=== PATIENT | female | born 1960 ===

== ENCOUNTER 2017-05-07 07:57 | Day surgery (SDC) | payer OTHER ==
[~2017-05-07 07:57] MED LIST: Bupivacaine HCl 0.25% PF (10 ml) Inj ONE; Iohexol 240 (50 ml) ONE; Lidocaine Hydrochloride 0 ML INJ ONE
[2017-05-07] MEDS ORDERED: Lidocaine 1% MPF (30 ml) Inj ONE (09:43)
[2017-05-07] MEDS ORDERED: Lactated Ringer's 1,000 ML IV ONE (10:05)
[2017-05-07] MEDS ORDERED: Propofol 10 mg/ml Inj (20 ML) ONE (10:10)
[2017-05-07] MEDS ORDERED: Midazolam 2 MG/2 ML VIAL ONE ×2 (10:10→10:22)
[2017-05-07 11:04] VITALS: RESP 18; TEMP 97; O2SAT 100
[2017-05-07 11:30] VITALS: BP 118/72; PULSE 70
--- NOTE | 2017-05-12 14:48 | RAD ---
PROCEDURE: Intraoperative Fluoroscopy. HISTORY: CERVICAL SPONDYLOSIS FINDINGS: Fluoroscopic assistance was provided for radiofrequency ablation. Please refer to the operative report from Dr. PEDROZA. EMILIA
== END 2017-05-07 11:32 | disposition home or self-care (01) ==
LOC: C.SDS 07:57
PROVIDERS: ATTEND Anesthesiology Pain Medicine
DX: M47.812 Spondylosis without myelopathy or radiculopathy, cervical region (principal); M50.20 Other cervical disc displacement, unspecified cervical region; M51.26 Other intervertebral disc displacement, lumbar region; J45.909 Unspecified asthma, uncomplicated; Z79.1 Long term (current) use of non-steroidal anti-inflammatories (NSAID)
CPT/HCPCS: 64633; 64634; 76000; J2250; J2704; J3010; J7120